=== PATIENT | male | born 1950 | race Caucasian/White ===

== ENCOUNTER 2017-11-29 16:34 | Emergency (ER) | payer OTHER ==
[~2017-11-29] VITALS: Ht 167.6 cm; Wt 73.0 kg
[2017-11-29 16:40] VITALS: Ht 167.6 cm; Wt 73.0 kg
[2017-11-29 18:00] VITALS: BP 143/95
== END 2017-11-29 18:00 | disposition home or self-care (01) ==
LOC: ED 16:34
DX: M54.42 Lumbago with sciatica, left side (principal); E78.00 Pure hypercholesterolemia, unspecified
CPT/HCPCS: J1885; J3010; J7512; Q0162